=== PATIENT | male | born 1980 | race Two or more races ===

== ENCOUNTER → 2016-07-20 | Day surgery (SDC) | payer OTHER ==
[~2016-07-20] VITALS: Ht 152.4 cm; Wt 61.2 kg
[2016-07-20] VITALS (9 sets, daily range): BP systolic 107–129; BP diastolic 64–84
[~2016-07-20] MED LIST: Alfentanil 2ml Inj ONE; Atropine Inj 1mg/10ml Syr IV PRN; Bupivacaine w/Epi 0.25% 30ml Vial INJ ONE; D5 1/2NS 1,000 ML IV SCH; Dexamethasone 4mg/ml vial ONE; DiphenhydrAMINE 50mg/ml Inj IVP PRN; EPINEPHrine 1mg/1ml Amp ONE; HYDROmorphone 1mg/ml Carpuject SUBQ PRN; Hydromorphone 0.5mg/0.5ml inj IVP PRN; Ketorolac 30mg Inj IV PRN; Ketorolac 60mg Inj IV PRN; LORazepam Inj 2mg/ml 1ml IV PRN; LR 1000ml 1,000 ML IVLG SCH; LR 1000ml ONE; Lidocaine 1% MPF 10mg/ml 5ml ONE; Meperidine 25mg/ml Inj IV PRN; Metoclopramide 10mg/2ml Inj IVP PRN; Metoclopramide 10mg/2ml Inj ONE; Midazolam 2mg/2ml Inj IVP PRN; Midazolam 2mg/2ml Inj ONE; NKM; NS Irrig 4000ml IRRIG ONE; Norco 5mg/325mg tab ORAL PRN; Norco 7.5mg/325mg tab ORAL PRN; Oxycodone/Acetaminophen 5-325 ORAL PRN; Propofol 10mg/ml 20ml IV ONE; Ropivacaine 5mg/ml Vial 20ml INJ ONE; Sterile Water Irrig 1000ml IRRIG ONE; Tylenol #3 tab (300mg/30mg) ORAL PRN; ceFAZolin 1gm/50ml Premix 50 ML IV ONE; ceFAZolin sod 1gm in NS 55ml IVPB ONE; celeBREX 200mg Cap **SURGERY PATIENTS ONLY ORAL ONE; fentaNYL 100 mcg/2 mL IV PRN; oxyCONTIN 20mg tab ORAL ONE
--- NOTE | 2016-07-20 07:59 | Pre-Procedure Note/Attestation ---
Pre-Procedure Note/Attestation Complete Prior to Procedure Planned Procedure: left Procedure Narrative: shoulder arthroscopy, posible labral repair, sad Indications for Procedure Pre-Operative Diagnosis: left shoulder labral tear, impingement Attestation I attest that I discussed the nature of the procedure; its benefits; risks and complications; and alternatives (and the risks and benefits of such alternatives ), prior to the procedure, with the patient (or the patient's legal healthcare sales representative). I attest that, if there was a reasonable possibility of needing a blood transfusion, the patient (or the patient's legal healthcare sales representative) was given the [facility] standardized written summary, pursuant to the Mat [place]isha Blood Safety Act ([place] Health and Safety Code # 1645, as amended). I attest that I re-evaluated the patient just prior to the surgery and that there has been no change in the patient's H&P, except as documented below: AVNI THOMPSON Jul 20, 2016 07:59
--- NOTE | 2016-07-20 07:59 | Operative Note - PDOC ---
Operative Note Operative Note Pre-op Diagnosis: left shoulder labral tear, impingement Procedure: see op report Post-op Diagnosis: same as pre-op plus Anesthesia: general Specimen: none Complications: none Condition: stable Estimated Blood Loss: none Implant(s) used?: No AVNI THOMPSON Jul 20, 2016 07:59
--- NOTE | 2016-07-20 08:06 | Anethesia Preoperative Eval ---
Anesthesia Pre-op PMH/ROS General Date of Evaluation: Jul 20, 2016 Time of Evaluation: 09:31 Anesthesiologist: Eloina ASA Score: ASA 1 Mallampati Score Class I : Soft palate, uvula, fauces, pillars visible Class II: Soft palate, uvula, fauces visible Class III: Soft palate, base of uvula visible Class IV: Only hard plate visible Mallampati Classification: Class I Surgeon: Kane Diagnosis: L Shoulder Pain Surgical Procedure: L Shoulder Arthroscopy Anesthesia History: none Family History: no anesthesia problems Allergies: Coded Allergies: No Known Allergies (Unverified , 07/19/16) Medications: see eMAR Anesthesia Pre-op Phys. Exam Physician Exam Vital Signs Date Time Temp Pulse Resp B/P Pulse Ox O2 Delivery O2 Flow Rate FiO2 07/20/16 08:16 98.8 79 18 107/74 97 Room Air Constitutional: NAD Neurologic: CN 2-12 intact Cardiovascular: RRR Respiratory: CTA Gastrointestinal: S/NT/ND Airway Exam Mallampati Score: Class II MO: full ROM: full Teeth: intact Anesthesia Pre-op A/P Risk Assessment & Plan Assessment: ASA 1 Plan: GA, BIS, Supraclavicular Block Status Change Before Surgery: Yes Pre-Antibiotics Dru Gram Ancef IV Given Within 1 Hr of Incision: Yes Time Given: 09:46 Pancho Duvall MD Jul 20, 2016 08:06
--- NOTE | 2016-07-20 08:26 | Immediate Post-Op Evaluation ---
Immediate Post-Op Evalulation Immediate Post-Op Evalulation Procedure: L Shoulder Arthroscopy Date of Evaluation: Jul 20, 2016 Time of Evaluation: 10:50 IV Fluids: 800 LR Blood Products: 0 Estimated Blood Loss: 12 Urinary Output: 0 Blood Pressure Systolic: 110 Blood Pressure Diastolic: 64 Pulse Rate: 96 Respiratory Rate: 16 O2 Sat by Pulse Oximetry: 98 Temperature (Fahrenheit): 97.2 Pain Score (1-10): 1 Nausea: No Vomiting: No Complications 0 Patient Status: awake, reacts, patent, extubated, none Hydration Status: adequate Dru Gram Ancef IV Given Within 1 Hr of Incision: Yes Time Given: 09:46 Pancho Duvall MD Jul 20, 2016 08:26
--- NOTE | 2016-07-20 08:27 | 48 Hour Post Anesthesia Eval ---
Post Anesthesia Evaluation Procedure: L Shoulder Arthroscopy Date of Evaluation: Jul 20, 2016 Time of Evaluation: 13:06 Blood Pressure Systolic: 114 0: 73 Pulse Rate: 76 Respiratory Rate: 18 Temperature (Fahrenheit): 98.4 O2 Sat by Pulse Oximetry: 100 Airway: patent Nausea: No Vomiting: No Pain Intensity: 1 Hydration Status: adequate Cardiopulmonary Status: Stable Mental Status/LOC: patient returned to baseline Follow-up Care/Observations: 0 Post-Anesthesia Complications: 0 Follow-up care needed: ready to discharge Pancho Duvall MD Jul 20, 2016 08:27
--- NOTE | 2016-07-20 21:37 | Operative Note - Dictated ---
DATE OF OPERATION: 07/20/2016 PREOPERATIVE DIAGNOSIS: Left shoulder internal derangement. POSTOPERATIVE DIAGNOSES: 1. Left shoulder impingement syndrome. 2. Left shoulder hypertrophic bursal tissue. PROCEDURE: 1. Left shoulder diagnostic arthroscopy. 2. Subacromial decompression. SURGEON: Nicolas Middleton M.D. ANESTHESIA: Interscalene with general. INDICATION FOR PROCEDURE: The patient is a pleasant gentleman, who has had left shoulder pain. He had MRI, which showed a possible posterior labral tear. He continued to have anterior shoulder pain particularly with odd activities. He failed conservative treatment and elected to undergo left shoulder arthroscopy. Risks, limitations, expectations, and complications of the procedure were discussed in detail including continued pain, need for future surgery, risk of anesthesia, medical complications, DVT, PE, and mortality risks. All questions were addressed. DESCRIPTION OF PROCEDURE: An informed consent was obtained. The patient was taken to the operating room and placed under interscalene general anesthesia. The patient was then carefully placed in the beachchair position. Left shoulder was prepped and draped in a sterile manner. Time-out was performed. Portal sites were injected with 0.25% Marcaine with epinephrine. An inferolateral stab incision was then made. Trocar was introduced into the glenohumeral joint. There is some some chondral damage. Subscap appeared to be intact along with the superior labrum. The footprint of the rotator cuff was intact. There is no significant posterior labral tear or chondral damage. Camera was then repositioned in the subacromial space. There is a hypertrophic bursal tissue. Lateral working portal was established. A complete bursectomy was performed. The undersurface of the acromion was identified. He had a significant bone spur, therefore acromioplasty was started from lateral to medial and then completed from posterior to anterior. Once that was completed, the remaining bursectomy in the posterior aspect of the shoulder was completed. Once that was done, the bursal side of the rotator cuff was evaluated, which is noted to be completely intact. At this point, the portal sites were closed with 3-0 Monocryl sutures. Steri-Strips and sterile dressing were applied. The patient was awoken and taken to recovery room with stable vital signs. ESTIMATED BLOOD LOSS: None. COMPLICATIONS: None. SPECIMENS: None. IMPLANTS: None. Nicolas Middleton M.D. DR: PETER JOB#: [id number] CC: [email or web address]
== END | disposition home or self-care (01) ==
LOC: SUR 06:33
DX: M75.42 Impingement syndrome of left shoulder (principal); M75.82 Other shoulder lesions, left shoulder; M51.86 Other intervertebral disc disorders, lumbar region
CPT/HCPCS: 29822; J0171; J1100; J2250; J2405; J2704; J2765; J2795; J3490; J7120; 94003; 94150